=== PATIENT | female | born 2000 | race Caucasian/White ===

== ENCOUNTER 2019-03-21 15:54 | Emergency (ER) | payer OTHER ==
[~2019-03-21] VITALS: Ht 165.1 cm; Wt 76.2 kg
[2019-03-21 16:27] LABS: URINE BILIRUBIN NEGATIVE (Negative); URINE BLOOD TRACE (Negative); URINE CLARITY CLEAR; URINE COLOR YELLOW; URINE GLUCOSE-RANDOM NEGATIVE (Negative); URINE KETONES NEGATIVE (Negative); URINE LEUKOCYTES-REFLEX NEGATIVE (Negative); URINE NITRITE-REFLEX NEGATIVE (Negative); URINE PROTEIN NEGATIVE (Negative); URINE UROBILINOGEN 0.2 E.U./dl (0.2-1.0)
[2019-03-21] MEDS ORDERED: DOXYCYCLINE 10100 MG PO ×2 (17:52→17:55)
[2019-03-21 18:25] VITALS: BP 112/65
== END 2019-03-21 18:26 | disposition home or self-care (01) ==
LOC: M.ERS 15:54
PROVIDERS: Nurse Practitioner Family
DX: N73.9 Female pelvic inflammatory disease, unspecified (principal); F17.210 Nicotine dependence, cigarettes, uncomplicated